=== PATIENT | female | born 1930 | race Asian ===

== ENCOUNTER 2017-07-06 11:01 | Outpatient (CLI) | payer MEDICARE, OTHER | END 2017-07-06 11:02 | disposition critical access hospital (66) | LOC: EMS 11:01 | PROVIDERS: ATTEND Surgery | DX: R06.00 Dyspnea, unspecified (principal) | CPT/HCPCS: A0425; A0427 ==

== ENCOUNTER 2017-07-06 11:20 | Emergency (ER) | payer MEDICARE, OTHER ==
[2017-07-06 11:53] LABS: BASOPHILS # (AUTO) 0.1 10^3/uL (0.0-0.1); BASOPHILS % (AUTO) 1.3 %; EOSINOPHILS # (AUTO) 1.4 10^3/uL (0.0-0.7); EOSINOPHILS % (AUTO) 14.8 %; HCT - HEMATOCRIT 37.6 % (37.0-47.0); HGB - HEMOGLOBIN 12.7 g/dL (12.0-16.0); LYMPHOCYTES % (AUTO) 42.8 %; MEAN CORPUSCULAR HEMOGLOBIN 32.2 pg (27.0-31.0); MEAN CORPUSCULAR HGB CONC 33.8 g/dL (32.0-36.0); MEAN CORPUSCULAR VOLUME 95.2 fL (81.0-99.0); MEAN PLATELET VOLUME 7.6 fL (7.9-10.8); MONOCYTES # (AUTO) 1.1 10^3/uL (0.0-1.0); NEUTROPHILS # (AUTO) 2.7 10^3/uL (1.5-6.6); NEUTROPHILS % (AUTO) 29.1 %; RED BLOOD COUNT 3.94 10^6/uL (4.20-5.40); RED CELL DISTRIBUTION WIDTH 12.9 % (12.0-15.0); UNCORRECTED WHITE BLOOD COUNT 9.2 x10^3/uL; WHITE BLOOD COUNT 9.2 x10^3/uL (4.8-10.8)
[2017-07-06 12:07] LABS: ALBUMIN/GLOBULIN RATIO 1.1 (1.0-2.2); BILIRUBIN,TOTAL 0.8 mg/dL (0.2-1.0); CALCIUM 9.7 mg/dL (8.5-10.3); CREATININE 1.4 mg/dL (0.4-1.0); TOTAL PROTEIN 7.7 g/dL (6.7-8.2)
[2017-07-06 12:12] LABS: PLATELET MORPHOLOGY RARE GIANT PLATELETS (NORMAL)
[2017-07-06 12:14] LABS: WBC MORPHOLOGY (MULTIPLE) 2+ REACTIVE LYMPHS (NORMAL)
[2017-07-06] MEDS ORDERED: IPRATROPIUM/ALBUTEROL 3 ML NEB INH STA (12:14)
[2017-07-06] MEDS ORDERED: methylPREDNISolone SUCCINATE 125 MG/2 ML VIAL IVP STA (12:15)
--- NOTE | 2017-07-06 12:24 | XRAY Preliminary Report ---
Exam: XR CHEST 2 VIEW PA/LAT IMPRESSION: No radiographically apparent acute abnormality in the chest. Elevation of the right hemid iaphragm is new from prior. [facility] SITE ID: [id number]
--- NOTE | 2017-07-06 12:26 | XRAY Report ---
EXAM: CHEST RADIOGRAPHY EXAM DATE: 07/06/2017 11:54 AM. CLINICAL HISTORY: Short of breath. COMPARISON: 12/10/2010. TECHNIQUE: 2 views. FINDINGS: Somewhat technically suboptimal study secondary to underpenetration on the AP view and gael on artifact on the lateral view. Lungs/pleura: No focal consolidation. Diffuse bilateral mildly accentuated interstitial markings appe ar chronic. Elevation of the right hemidiaphragm is new from prior. Normal overall lung volumes. No p neumothorax or pleural effusion. Mediastinum: The cardiac silhouette is mildly enlarged. Other: None. IMPRESSION: No radiographically apparent acute abnormality in the chest. Elevation of the right hemid iaphragm is new from prior. [facility] Referring Provider Line: [phone] SITE ID: [id number]
[2017-07-06] MEDS ORDERED: IPRATROPIUM/ALBUTEROL 3 ML NEB INH ONE (12:29)
--- NOTE | 2017-07-06 13:13 | ED Physician Documentation ---
PD HPI DYSPNEA - Stated complaint Stated Complaint: RESP. DISTRESS - Chief complaint Chief Complaint: Resp - History obtained from History obtained from: Patient, Friend, EMS - History of Present Illness Timing - onset: Yesterday Timing - details: Gradual onset, Still present Inciting event(s): URI Improved by: O2, Inhaler/neb, Steroids Associated symptoms: Cough, Wheezing. No: Fever, Chest pain / discomfort, Bilateral edema Similar symptoms before: Work up / diagnostics, Treatment Recently seen: Not recently seen - Additional information Additional information: Patient is an 86 year old female with a history of asthma who is presenting to the emergency department for shortness of breath. According to a family friend over the last couple of days the patient has been coughing and had increased wheezing. Patient is only scheduled for 4 hour breathing treatments. Patient was hypoxic this morning and ems was called. Enroute patient was treated with solumedrol 125mg and a duoneb and an albuterol treatment. patient improved moderately. Upon my initial evaluation patient had moderate wheezing but was no longer hypoxic. Review of Systems Constitutional: denies: Fever, Chills Ears: denies: Ear pain, Drainage/discharge Nose: denies: Congestion Throat: reports: Reviewed and negative Cardiac: denies: Chest pain / pressure Respiratory: reports: Cough, Wheezing. denies: Hemoptysis GI: denies: Nausea, Vomiting Skin: denies: Rash, Lesions Neurologic: denies: Generalized weakness, Focal weakness PD PAST MEDICAL HISTORY - Past Medical History Past Medical History: Yes Cardiovascular: Hypertension Respiratory: Pneumonia Neuro: Alzhiemer's - Past Surgical History Past Surgical History: Yes - Present Medications Home Medications: Ambulatory Orders Medication Instructions Recorded Confirmed Albuterol Sulfate [Ventolin Hfa] PRN 11/13/12 11/13/12 Citalopram [CeleXA] 10 mg PO DAILY 11/13/12 01/20/16 Donepezil [Aricept] 5 mg DAILY 11/13/12 01/20/16 Venlafaxine [Effexor] 150 mg PO DAILY 11/13/12 01/20/16 Acetaminophen [Tylenol] 2 tab PO Q6HR PRN 01/20/16 01/20/16 Bisacodyl [Dulcolax] 10 mg [place] DAILY PRN 01/20/16 01/20/16 Culturella 1 tab PO DAILY 01/20/16 01/20/16 Difluprednate [Durezol] 1 applic EACHEYE DAILY 01/20/16 01/20/16 Gabapentin 300 mg PO TID #30 capsule 01/20/16 LORazepam [Ativan] 1 tab PO BID PRN 01/20/16 01/20/16 Lisinopril 1 tab PO DAILY 01/20/16 01/20/16 Trimethoprim 1 tab PO DAILY 01/20/16 01/20/16 Albuterol Sulfate [Proair Hfa 1 - 2 puffs INH Q2H PRN #1 inhaler 07/06/17 Inhaler] Benzonatate [Tessalon Perle] 100 mg PO Q8HR PRN #20 capsule 07/06/17 Methylprednisolone [Medrol] 4 mg PO DAILY #1 tab.ds.pk 07/06/17 - Allergies Allergies/Adverse Reactions: Allergies Allergy/AdvReac Type Severity Reaction Status Date / Time Penicillins Allergy Rash Verified 01/20/16 12:35 - Social History Does the pt smoke?: No Smoking Status: Never smoker Does the pt drink ETOH?: No - Immunizations Immunizations are current?: Yes - POLST Patient has POLST: Yes POLST Status: Limited Interventions PD ED PE NORMAL - Vitals Vital signs reviewed: Yes - General General: Alert and oriented X 3, No acute distress - HEENT HEENT: Atraumatic, PERRL, Moist mucous membranes - Neck Neck: Supple, no meningeal sign, No JVD - Abdomen Abdomen: Soft - Derm Derm: Normal color, Warm and dry, No rash - Extremities Extremities: No edema - Neuro Neuro: Alert and oriented X 3, No motor deficit, No sensory deficit - Psych Psych: Normal mood PD ED PE EXPANDED - Cardiac Cardiac: Tachy - Respiratory Respiratory: Wheezing, Rhonchi, Right upper lobe, Right middle lobe, Right lower lobe, Left upper lobe, Left lower lobe. No: Accessory mm use Results - Vitals Vitals: Vital Signs - 24 hr 07/06/17 07/06/17 11:24 12:20 Temperature 37.3 C Heart Rate 113 H 117 H Respiratory 22 21 Rate Blood Pressure 158/80 H O2 Saturation 96 Oxygen O2 Source Room air - EKG (time done) 1130 Rate: Rate (enter#) (112) Rhythm: Sinus tachycardia [place]: Normal Intervals: Normal [place] QRS: Normal Ischemia: Normal ST segments Compare to prior EKG: Old EKG unavailable - Labs Labs: Laboratory Tests 07/06/17 07/06/17 07/06/17 11:37 11:37 11:37 WBC 9.2 RBC 3.94 L Hgb 12.7 Hct 37.6 MCV 95.2 MCH 32.2 H MCHC 33.8 RDW 12.9 Plt Count 200 MPV 7.6 L Neut # 2.7 Lymph # 4.0 H [place] # 1.1 H Eos # 1.4 H Baso # 0.1 Absolute Nucleated RBC 0.00 Nucleated RBC % 0.0 Manual Slide Review Indicated WBC Morphology 2+ REACTIVE LYMPHS Platelet Morphology RARE GIANT PLATELETS RBC Morph Micro Appear 2+ ANISOCYTOSIS Sodium 138 Potassium 4.0 Chloride 103 Carbon Dioxide 24 Anion Gap 11.0 BUN 24 H Creatinine 1.4 H Estimated GFR (MDRD) 36 L Glucose 116 H Calcium 9.7 Total Bilirubin 0.8 AST 28 ALT 17 Alkaline Phosphatase 82 Troponin I < 0.04 B-Natriuretic Peptide Total Protein 7.7 Albumin 4.0 Globulin 3.7 Albumin/Globulin Ratio 1.1 Lipase 51 07/06/17 11:37 WBC RBC Hgb Hct MCV MCH MCHC RDW Plt Count MPV Neut # Lymph # [place] # Eos # Baso # Absolute Nucleated RBC Nucleated RBC % Manual Slide Review WBC Morphology Platelet Morphology RBC Morph Micro Appear Sodium Potassium Chloride Carbon Dioxide Anion Gap BUN Creatinine Estimated GFR (MDRD) Glucose Calcium Total Bilirubin AST ALT Alkaline Phosphatase Troponin I B-Natriuretic Peptide 31 Total Protein Albumin Globulin Albumin/Globulin Ratio Lipase - Rads (name of study) chest x-ray Radiology: Final report received (no acute abnormality) PD MEDICAL DECISION MAKING - ED course Complexity details: reviewed old records, reviewed results, re-evaluated patient , considered differential, d/w patient, d/w family ED course: Patient was seen and examined at bedside. ekg was performed and showed sinus tach. Labs were drawn and imaging was ordered. Patient was treated with additional nebulizer treatments. Patient's ekg showed sinus tachycardia but no acute ischemic changes. Patient's chest x-ray showed no sign of infiltrate. patient responded well to the breathing treatments and her lungs cleared up. Upon discharge patient was 95% percent on room air. Prescriptions were written. Patient's career consultant was given detailed discharge and follow up instructions. patient required no further work up and was stable for discharge with outpatient follow up. Departure - Departure Disposition: 01 Home, Self Care Clinical Impression: Moderate COPD (chronic obstructive pulmonary disease) Condition: Good Instructions: ED COPD Flare Follow-Up: Shay Ferguson MD [Primary Care Provider] - Within 3 Days Prescriptions: Benzonatate [Tessalon Perle] 100 mg PO Q8HR PRN #20 capsule PRN Reason: Cough Albuterol Sulfate [Proair Hfa Inhaler] 1 - 2 puffs INH Q2H PRN #1 inhaler PRN Reason: Shortness Of Air/Wheezing Methylprednisolone [Medrol] 4 mg PO DAILY #1 tab.ds.pk Comments: Your symptoms today are likely secondary to copd flare and viral bronchitis. it is important that you increase the breathing treatment to every 2 hours as needed for the next few days. You will also be placed on a medrol dose pack which you can start tomorrow. If your symptoms persist you will needed to call your doctor to schedule a follow up appointment. You may return to the emergency department at any time for new, worsening or uncontrollable symptoms.
[2017-07-06] MEDS ORDERED: BENZONATATE 100 MG CAPSULE PO STA (13:20)
[2017-07-06 13:41] VITALS: BP 131/92
== END 2017-07-06 13:41 | disposition home or self-care (01) ==
LOC: ED 11:20
DX: J44.9 Chronic obstructive pulmonary disease, unspecified (principal); I10 Essential (primary) hypertension; G30.9 Alzheimer's disease, unspecified; F02.80 Dementia in other diseases classified elsewhere, unspecified severity, without behavioral disturbance, psychotic disturbance, mood disturbance, and anxiety
CPT/HCPCS: 36415; 71020; 80053; 83690; 83880; 84484; 85025; 93005; 94640; 99284; A9270; J7620

== ENCOUNTER 2017-07-08 13:28 | Emergency (ER) | payer MEDICARE, OTHER ==
[2017-07-08] MEDS ORDERED: DEXAMETHASONE 10 MG/ML VIAL PO STA (13:57)
[2017-07-08] MEDS ORDERED: IPRATROPIUM/ALBUTEROL 3 ML NEB INH STA (13:57)
--- NOTE | 2017-07-08 14:02 | ED Physician Documentation ---
PD HPI DYSPNEA - Stated complaint Stated Complaint: SOA - Chief complaint Chief Complaint: Resp - History obtained from History obtained from: Patient, Family (Daughter, who is a nurse at [employer] [facility] [employer].) - History of Present Illness Timing - onset: How many weeks ago (1) Timing - details: Still present Associated symptoms: Cough, Wheezing. No: Fever, Chest pain / discomfort Similar symptoms before: Diagnosis (COPD) Recently seen: Emergency Dept (2 days ago.) - Additional information Additional information: The patient is an 87-year-old female with history of COPD who presents complaining of shortness of breath. She has had nonproductive cough for the past week. She was seen by her primary physician 5 days ago and was diagnosed with upper respiratory infection. 2 days ago she was seen in the emergency department here where a chest x-ray was negative. She had wheezing and was treated with DuoNeb and Solu-Medrol with subsequent improvement. She presents today because of persistent cough, shortness of breath, and low pulse oximetry according to her daughter, who is a nurse at the [employer] [facility] [employer] [employer]. She denies fever, abdominal pain, chest pain, or dysuria. She has had decreased energy level and decreased appetite. Social history is significant for residing at [facility]. Review of Systems Constitutional: reports: Fatigue. denies: Fever Nose: denies: Congestion Throat: denies: Sore throat Cardiac: denies: Chest pain / pressure Respiratory: reports: Dyspnea, Cough GI: denies: Abdominal Pain, Nausea, Vomiting : denies: Dysuria Skin: denies: Rash Musculoskeletal: denies: Extremity pain, Extremity swelling Neurologic: denies: Focal weakness, Numbness, Headache PD PAST MEDICAL HISTORY - Past Medical History Past Medical History: Yes Cardiovascular: Hypertension Respiratory: Pneumonia Neuro: Alzhiemer's - Past Surgical History Past Surgical History: Yes - Present Medications Home Medications: Ambulatory Orders Medication Instructions Recorded Confirmed Citalopram [CeleXA] 10 mg PO DAILY 11/13/12 07/08/17 Donepezil [Aricept] 5 mg DAILY 11/13/12 07/08/17 Venlafaxine [Effexor] 150 mg PO DAILY 11/13/12 07/08/17 Acetaminophen [Tylenol] 2 tab PO Q6HR PRN 01/20/16 07/08/17 Bisacodyl [Dulcolax] 10 mg [place] DAILY PRN 01/20/16 07/08/17 Culturella 1 tab PO DAILY 01/20/16 07/08/17 Difluprednate [Durezol] 1 applic EACHEYE DAILY 01/20/16 07/08/17 Gabapentin 300 mg PO TID #30 capsule 01/20/16 07/08/17 LORazepam [Ativan] 1 tab PO BID PRN 01/20/16 07/08/17 Lisinopril 1 tab PO DAILY 01/20/16 07/08/17 Trimethoprim 1 tab PO DAILY 01/20/16 07/08/17 Albuterol Sulfate [Proair Hfa 1 - 2 puffs INH Q2H PRN #1 inhaler 07/06/17 Inhaler] Benzonatate [Tessalon Perle] 100 mg PO Q8HR PRN #20 capsule 07/06/17 07/08/17 Methylprednisolone [Medrol] 4 mg PO DAILY #1 tab.ds.pk 07/06/17 07/08/17 Levalbuterol [Xopenex] 1.25 mg INH RTQ4H #2 neb 07/08/17 Levalbuterol [Xopenex] 1.25 mg INH RTQ4H #30 neb 07/08/17 predniSONE [Prednisone] 30 mg PO DAILY #15 tablet 07/08/17 - Allergies Allergies/Adverse Reactions: Allergies Allergy/AdvReac Type Severity Reaction Status Date / Time Penicillins Allergy Rash Verified 01/20/16 12:35 - Social History Does the pt smoke?: No Smoking Status: Never smoker Does the pt drink ETOH?: No - Immunizations Immunizations are current?: Yes - POLST Patient has POLST: Yes POLST Status: Limited Interventions PD ED PE NORMAL - Vitals Vital signs reviewed: Yes (tachycardic) - General General: Alert and oriented X 3, Well developed/nourished - HEENT HEENT: Atraumatic, Moist mucous membranes, Pharynx benign - Neck Neck: No adenopathy, No JVD - Cardiac Cardiac: No murmur, Other (Rapid rate, regular rhythm.) - Respiratory Respiratory: Other (Diffuse expiratory wheezing, without rales or rhonchi.) - Abdomen Abdomen: Soft, Non tender - Back Back: No CVA TTP - Derm Derm: No rash - Extremities Extremities: No edema, No calf tenderness / cord - Neuro Neuro: No motor deficit, Normal speech, Other (Alert, communicating appropriately.) Results - Vitals Vitals: Oxygen O2 Source Nasal cannula Oxygen Flow Rate 94 - EKG (time done) 13:37 Rate: Rate (enter#) (111) Rhythm: Sinus tachycardia [place]: LAD Intervals: Normal [place] QRS: Normal Ischemia: Normal ST segments Compare to prior EKG: Unchanged from prior EKG Computer interpretation: Agree with computer - Rads (name of study) CXR Radiology: Prelim report reviewed, EMP read contemporaneously, See rad report ( Stable radiographic appearance of the chest. No acute plain film abnormalities are seen.) PD MEDICAL DECISION MAKING - ED course Complexity details: reviewed old records, reviewed results, re-evaluated patient , considered differential, d/w patient, d/w family ED course: The patient's presentation is most consistent with acute exacerbation of COPD. Chest x-ray again reveals no pulmonary infiltrate. Her presentation does not suggest pneumonia, congestive heart failure, or pulmonary embolus. Treatment in the emergency department included administration of DuoNeb nebulizer and dexamethasone 10 mg orally. Her symptoms minimally improved with this treatment. Xopenex nebulizer was administered, and this provided much greater improvement in the patient's symptoms. Her pulse oximetry improved, and her heart rate diminished. Because of persistent cough and at her daughter' s request, Tessalon 100 mg is administered orally. She is being discharged with prescription for Xopenex nebulizer solution and for prednisone. I discussed with her and her daughter the expected course of illness, outpatient follow-up, as well as potentially worrisome signs or symptoms that should prompt reevaluation in the emergency department. Departure - Departure Disposition: 01 Home, Self Care Clinical Impression: COPD exacerbation Condition: Stable Instructions: ED COPD Flare Follow-Up: Shay Ferguson MD [Primary Care Provider] - Prescriptions: Levalbuterol [Xopenex] 1.25 mg INH RTQ4H #2 neb Levalbuterol [Xopenex] 1.25 mg INH RTQ4H #30 neb predniSONE [Prednisone] 30 mg PO DAILY #15 tablet Comments: Use the Xopenex nebulizer treatments as prescribed. Take prednisone for the next 5 days as prescribed. Follow up with your primary physician within 1 week. Call to schedule appointment. Return to the emergency department if you develop increasing difficulty breathing, or otherwise worsening symptoms. Discharge Date/Time: 07/08/17 16:33
--- NOTE | 2017-07-08 14:35 | XRAY Preliminary Report ---
Exam: XR CHEST 2 VIEW PA/LAT IMPRESSION: Stable radiographic appearance to the chest. No acute plain film abnormalities are seen. [facility] SITE ID: [id number]
--- NOTE | 2017-07-08 14:37 | XRAY Report ---
EXAM: CHEST RADIOGRAPHY EXAM DATE: 07/08/2017 01:58 PM. CLINICAL HISTORY: Cough. COMPARISON: 07/06/2017. TECHNIQUE: 2 views. FINDINGS: Lungs/Pleura: Mild relative right hemidiaphragm elevation. Stable reticular opacity within the right mid lung. No evidence of acute consolidation. No effusion. No pneumothorax. Mediastinum: Borderline cardiomegaly. There is thoracic aortic calcification. Other: None. IMPRESSION: Stable radiographic appearance to the chest. No acute plain film abnormalities are seen. [facility] Referring Provider Line: [phone] SITE ID: [id number]
[2017-07-08] MEDS ORDERED: LEVALBUTEROL 1.25 MG/0.5 ML NEB INH STA (15:06)
[2017-07-08 15:55] VITALS: BP 166/90
[2017-07-08] MEDS ORDERED: BENZONATATE 100 MG CAPSULE PO STA (16:13)
--- NOTE | 2017-07-11 18:45 | ED Physician Documentation ---
ED Addendum - Addendum Addendum: 07/11/17 18:45 Took call from [facility], I guess she is on both prednisone taper as well as a Medrol Dosepak and they would like an order for 1 to be discontinued and I faxed them a prescription sent to discontinue the Medrol Dosepak and to continue the prednisone.
== END 2017-07-08 16:33 | disposition home or self-care (01) ==
LOC: ED 13:28
DX: J44.1 Chronic obstructive pulmonary disease with (acute) exacerbation (principal); R00.0 Tachycardia, unspecified; I10 Essential (primary) hypertension; G30.9 Alzheimer's disease, unspecified; F02.80 Dementia in other diseases classified elsewhere, unspecified severity, without behavioral disturbance, psychotic disturbance, mood disturbance, and anxiety
CPT/HCPCS: 71020; 94640; 99283; 99284; A9270; J7620

== ENCOUNTER 2021-03-05 08:00 | Outpatient (CLI) | payer MEDICARE, OTHER, MEDICAID ==
[2021-03-05 18:07] LABS: BASOPHILS # (AUTO) 0.1 10^3/uL (0.0-0.1); EOSINOPHILS # (AUTO) 0.2 10^3/uL (0.0-0.7); EOSINOPHILS % (AUTO) 3.6 %; HCT - HEMATOCRIT 39.4 % (37.0-47.0); HGB - HEMOGLOBIN 12.8 g/dL (12.0-16.0); LYMPHOCYTES # (AUTO) 1.8 10^3/uL (1.5-3.5); LYMPHOCYTES % (AUTO) 28.9 %; MEAN CORPUSCULAR HEMOGLOBIN 32.2 pg (27.0-31.0); MEAN CORPUSCULAR HGB CONC 32.5 g/dL (32.0-36.0); MEAN CORPUSCULAR VOLUME 99.2 fL (81.0-99.0); MEAN PLATELET VOLUME 9.9 fL (7.9-10.8); MONOCYTES # (AUTO) 0.7 10^3/uL (0.0-1.0); MONOCYTES % (AUTO) 10.7 %; NEUTROPHILS # (AUTO) 3.4 10^3/uL (1.5-6.6); NEUTROPHILS % (AUTO) 55.5 %; PLT - PLATELET COUNT 255 10^3/uL (130-450); RED BLOOD COUNT 3.97 10^6/uL (4.20-5.40); RED CELL DISTRIBUTION WIDTH 12.8 % (12.0-15.0); WHITE BLOOD COUNT 6.2 x10^3/uL (4.8-10.8)
[2021-03-05 18:24] LABS: ALBUMIN 3.9 g/dL (3.2-5.5); ALBUMIN/GLOBULIN RATIO 1.1 (1.0-2.2); BILIRUBIN,TOTAL 0.6 mg/dL (0.2-1.0); CALCIUM 9.5 mg/dL (8.5-10.3); CREATININE 1.3 mg/dL (0.4-1.0); POTASSIUM 4.4 mmol/L (3.5-5.0); TOTAL PROTEIN 7.4 g/dL (6.7-8.2)
[2021-03-05 18:39] LABS: THYROID STIMULATING HORMONE 2.02 uIU/mL (0.34-5.60)
== END 2021-03-05 23:59 | disposition home or self-care (01) ==
LOC: LAB.WCP 08:00
PROVIDERS: ATTEND Family Medicine
DX: F03.91 Unspecified dementia, unspecified severity, with behavioral disturbance (principal); M54.5 Low back pain; F32.9 Major depressive disorder, single episode, unspecified; I10 Essential (primary) hypertension; J45.909 Unspecified asthma, uncomplicated
CPT/HCPCS: 36415; 80053; 84443; 85025

== ENCOUNTER 2021-10-05 08:30 | Emergency (ER) | payer MEDICARE, OTHER, MEDICAID ==
--- NOTE | 2021-10-05 08:46 | ED Physician Documentation ---
PD HPI HEAD INJURY - Stated complaint Stated Complaint: GLF - Chief complaint Chief Complaint: Laceration - History obtained from History obtained from: Patient - History of Present Illness Mechanism of head injury: Fell (shipped over shoe at breakfast and fell forward, striking head as she fell, with laceration forehead.) Where head injury occurred: Other ([facility]) Timing - onset: Today Location of injury: Right, Front Associated symptoms: No: LOC, AMS, Nausea / vomiting, Neck pain Symptoms worsen with: Palpation Contributing factors: No: Anticoagulated Similar symptoms before: Other (old prior dens fracture neck and subdural hematoma.) Recently seen: Not recently seen Review of Systems Unable to obtain: Dementia Constitutional: denies: Fever GI: denies: Nausea, Vomiting Neurologic: denies: Focal weakness, Numbness, Altered mental status, LOC PD PAST MEDICAL HISTORY - Past Medical History Cardiovascular: Hypertension Respiratory: Pneumonia Musculoskeletal: Other (prior dens fracture with surgical fixation of neck. ) - Past Surgical History Past Surgical History: Yes - Present Medications Home Medications: Ambulatory Orders Medication Instructions Recorded Confirmed Citalopram [CeleXA] 10 mg PO DAILY 11/13/12 07/08/17 Donepezil [Aricept] 5 mg DAILY 11/13/12 07/08/17 Venlafaxine [Effexor] 150 mg PO DAILY 11/13/12 07/08/17 Acetaminophen [Tylenol] 2 tab PO Q6HR PRN 01/20/16 07/08/17 Culturella 1 tab PO DAILY 01/20/16 07/08/17 Difluprednate [Durezol] 1 applic EACHEYE DAILY 01/20/16 07/08/17 Gabapentin 300 mg PO TID #30 capsule 01/20/16 07/08/17 LORazepam [Ativan] 1 tab PO BID PRN 01/20/16 07/08/17 Trimethoprim 1 tab PO DAILY 01/20/16 07/08/17 bisacodyL [Dulcolax] 10 mg [place] DAILY PRN 01/20/16 07/08/17 lisinopriL [Lisinopril] 1 tab PO DAILY 01/20/16 07/08/17 Albuterol Sulfate [Proair Hfa 1 - 2 puffs INH Q2H PRN #1 inhaler 07/06/17 07/08/17 Inhaler] Benzonatate [Tessalon Perle] 100 mg PO Q8HR PRN #20 capsule 07/06/17 07/08/17 methylPREDNISolone [Medrol] 4 mg PO DAILY #1 tab.ds.pk 07/06/17 07/08/17 Levalbuterol [Xopenex] 1.25 mg INH RTQ4H #2 neb 07/08/17 Levalbuterol [Xopenex] 1.25 mg INH RTQ4H #30 neb 07/08/17 predniSONE [Prednisone] 30 mg PO DAILY #15 tablet 07/08/17 Clotrimazole/Betamethasone Crm 1 applic TOP BID 10 Days #15 gm 10/05/21 [Lotrisone Cream] - Allergies Allergies/Adverse Reactions: Allergies Allergy/AdvReac Type Severity Reaction Status Date / Time Penicillins Allergy Rash Verified 10/05/21 08:35 - Social History Does the pt smoke?: No Smoking Status: Never smoker Does the pt drink ETOH?: No - Immunizations Immunizations are current?: Yes - POLST Patient has POLST: Yes POLST Status: Limited Interventions PD ED PE NORMAL - Vitals Vital signs reviewed: Yes - General General: Alert and oriented X 3, No acute distress, Well developed/nourished - HEENT HEENT: PERRL, EOMI, Other (forehead laceration 3 cm on right upper forehead. Mild bleeding. No FB. ) - Neck Neck: Supple, no meningeal sign, No adenopathy - Cardiac Cardiac: Other (no chestwall tenderness) - Respiratory Respiratory: Clear bilaterally - Abdomen Abdomen: Soft, Non tender - Derm Derm: Normal color - Extremities Extremities: No tenderness to palpate, Normal ROM s pain - Neuro Neuro: Alert and oriented X 3, No motor deficit, Normal speech Eye Opening: Spontaneous Motor: Obeys Commands Verbal: Oriented GCS Score: 15 Results - Vitals Vitals: Vital Signs - 24 hr 10/05/21 10/05/21 08:35 11:07 Temperature 36.6 C 36.3 C L Heart Rate 81 84 Respiratory 18 16 Rate Blood Pressure 176/99 H 169/113 H O2 Saturation 97 100 Oxygen O2 Source Room air - Rads (name of study) head CT Radiology: Prelim report reviewed (old hygroma, seen in prior imaging. No acute bleeding.), See rad report cervical CT Radiology: Prelim report reviewed (chronic dens fracture with fixation hardware C1/C2. No acute fractures.), See rad report Procedures - Laceration (location) right forehead Length in cm: 3 Wound type: Linear, Into subcut fat (mild bleeding present from wound.), Clean Neurovascular status: Sensory intact Anesthesia: Lidocaine 1% with epi Wound preparation: Irrigated copiously NS, Wound explored, To the base Skin layer closure: Nylon, Running, Size #-0 - enter number (6), Sutures - enter # (9) Other: Patient tolerated well, No complications, Dressing applied, Tetanus UTD PD MEDICAL DECISION MAKING - ED course Complexity details: reviewed results, considered differential, d/w patient, d/w family (daughter in law) Departure - Departure Disposition: 01 Home, Self Care Clinical Impression: Tinea corporis Fall Qualifiers: Encounter type: initial encounter Qualified Code(s): W19.XXXA - Unspecified fall, initial encounter Forehead laceration Qualifiers: Encounter type: initial encounter Qualified Code(s): S01.81XA - Laceration without foreign body of other part of head, initial encounter Condition: Stable Record reviewed to determine appropriate education?: Yes Instructions: ED Laceration Facial Sutr Tape Follow-Up: Ryan Santiago MD [Primary Care Provider] - Prescriptions: Clotrimazole/Betamethasone Crm [Lotrisone Cream] 1 applic TOP BID 10 Days #15 gm Comments: Your neck CT scan showed the hardware to still be in place from your prior neck fracture. No dislodgment or new injury. Your CT of the head showed small old fluid collection around the brain that seem to be present on prior CT scans as well. No signs of acute bleeding swelling or injury. The forehead laceration was sutured. These will need to get removed in 9 days on October 14, 2021. It is okay to wash and shower. Clean off the wound twice a day with soap and water, or peroxide and water. Apply some antibiotic ointment to it to keep it moist. Also to watch for signs of infection such as purulence, redness or increasing pain. Return to your primary care or the ER at the specified time for suture removal. For the neck rash, I think this is a skin fungal infection and I would treat it with Lotrisone cream lightly to the area twice daily for the next 10 days. This should resolve during that timeframe. Forms: Activity restrictions Discharge Date/Time: 10/05/21 11:09
--- NOTE | 2021-10-05 09:23 | CT Report ---
PROCEDURE: HEAD WO INDICATIONS: fall, struck head TECHNIQUE: Noncontrast 4.5 mm thick angled axial sections acquired from the foramen magnum to the vertex. For r adiation dose reduction, the following was used: automated exposure control, adjustment of mA and/or kV according to patient size. COMPARISON: Correlation is made with a complete cervical spine CT, 10/05/2021. FINDINGS: Image quality: Excellent. CSF spaces: Basal cisterns are patent. There is a mild subdural hygroma seen on the left. Ventricles are normal in size and shape. Brain: No midline shift. No intracranial masses or hemorrhage. Alberts-white matter interface is norm al. Age-appropriate brain parenchymal volume loss and chronic small vessel ischemic change can be se en. Skull and face: Calvarium and visualized facial bones are intact, without suspicious lesions. Sinuses: Visualized sinuses and mastoids are clear. IMPRESSION: No intracranial hemorrhage is seen. No significant intracranial abnormality is seen. Left-sided subdural hygroma. Age-appropriate brain parenchymal volume loss and chronic small vessel ischemic change can be seen. Reviewed by: Aidan Dsouza MD on 10/05/2021 8:22 AM ROB Approved by: Aidan Dsouza MD on 10/05/2021 8:22 AM ROB Station ID: [id number]
--- NOTE | 2021-10-05 09:26 | CT Report ---
PROCEDURE: CERVICAL SPINE WO INDICATIONS: fall, struck head TECHNIQUE: Noncontrast 3 mm thick sections acquired from the skull base to the T4 level. Sagittal and coronal r eformats were then constructed. For radiation dose reduction, the following was used: automated exp osure control, adjustment of mA and/or kV according to patient size. COMPARISON: Correlation is made with the accompanying head CT, 10/05/2021. FINDINGS: Image quality: Excellent. 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 Fixation hardware is seen posteriorly at C1-C2. No f indings of hardware failure or hardware loosening can be seen. No acute fractures are seen. Mild grade 1 anterolisthesis is seen at C2-C3, with mild retrolisthesis at C5-C6 and C6-C7. Moderate to severe disc space narrowing can be seen throughout the cervical spine. Soft tissues: Prevertebral soft tissues are normal in thickness. No paravertebral hematomas. No ap ical pneumothoraces. Atherosclerotic calcification is seen. 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 IMPRESSION: No acute fracture can be seen. Chronic dens fracture with fixation hardware posteriorly at C1-C2. 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 Reviewed by: Aidan Dsouza MD on 10/05/2021 8:25 AM ROB Approved by: Aidan Dsouza MD on 10/05/2021 8:25 AM ROB Station ID: [id number]
[2021-10-05] MEDS: LIDOCAINE 1%-EPI 1:100000 20 ML MDV SUBQ STA (09:51)
[2021-10-05 11:08] VITALS: BP 169/113
== END 2021-10-05 11:09 | disposition home or self-care (01) ==
LOC: EDUNIT# → ED 08:30
DX: S01.81XA Laceration without foreign body of other part of head, initial encounter (principal); W01.10XA Fall on same level from slipping, tripping and stumbling with subsequent striking against unspecified object, initial encounter; I10 Essential (primary) hypertension
CPT/HCPCS: 12013; 99282; 99284